=== PATIENT | female | born 1980 | race Caucasian/White ===

== ENCOUNTER 2024-05-20 19:39 | Emergency (ER) | payer OTHER ==
[~2024-05-20] VITALS: Ht 157.5 cm; Wt 79.4 kg
[~2024-05-20 19:39] MED LIST: AZIT500 PO; Acetaminophen650 M1 PO; BREO ELLIPTA 11 EAC1 INH; BUPRENORPHIN-N1 EAC1 SL; BUPRENORPHIN-N1 EAC5 SL; CEFP200 PO; CLON.2 PO; ESZOPICLONE3 MG PO; FLUTICASONE-SA1 EAC9 IH; GLYBURIDE5 M2 PO; IBU800 M1 PO; INSULIN GL100 UNIT/2 SC; LABE100 PO; LAMICTAL200 MG PO; LIDO700A20 TOP; NEURONTIN300 MG PO; OMEP20ER PO; ONDA4ODT MM; PRAZ5 PO; Phenergan25 M1 PO; Prednisone20 MG PO; REGLAN1013 PO; TRAZ100 PO; VISBIOME 112.51 EACH PO
[2024-05-20 19:49] VITALS: BP 117/76
[2024-05-20 20:19] LABS: BASOPHILS ABSOLUTE AUTO 0.03 K/mm3 (0.00-0.23); BASOPHILS PERCENT AUTO 1 % (0-2); EOSINOPHILS ABSOLUTE AUTO 0.03 K/mm3 (0.00-0.68); EOSINOPHILS PERCENT AUTO 1 % (0-6); Hematocrit 38.1 % (33.0-51.0); Hemoglobin 12.1 g/dL (11.5-16.0); IMMATURE GRAN ABSOLUTE AUTO 0.02 K/mm3 (0.00-0.10); IMMATURE GRAN PERCENT AUTO 0 % (0-1); LYMPHOCYTES ABSOLUTE AUTO 1.51 K/mm3 (0.84-5.20); LYMPHOCYTES PERCENT AUTO 25 % (21-46); MONOCYTES ABSOLUTE AUTO 0.36 K/mm3 (0.16-1.47); MONOCYTES PERCENT AUTO 6 % (4-13); Mean Corpuscular HGB 31.8 pg (26.0-34.0); Mean Corpuscular HGB Conc 31.8 g/dL (31.5-36.5); Mean Corpuscular Volume 100 fL (80-100); Mean Platelet Volume 10.9 fL (9.1-12.4); NEUTROPHILS ABSOLUTE AUTO 4.17 K/mm3 (1.96-9.15); NEUTROPHILS PERCENT AUTO 68 % (41-73); Platelet Count 226 K/mm3 (150-400); RDW Coefficient Variation 12.9 % (11.7-14.2); RDW Standard Deviation 47.8 fL (35.1-46.3); Red Blood Cell Count 3.81 M/mm3 (3.80-5.20); White Blood Cell Count 6.12 K/mm3 (4.00-11.30)
[2024-05-20 20:41] LABS: Albumin, Blood 3.3 g/dL (3.4-5.0); Albumin/Globulin Ratio 0.9 (0.8-1.8); Bilirubin, Total 0.2 mg/dL (0.1-1.0); Bun/Creatinine Ratio 14.4 (12.0-20.0); Calcium, Blood 8.8 mg/dL (8.5-10.1); Creatinine, Blood 0.63 mg/dL (0.40-1.00); Globulin, Blood 3.5 g/dL (2.2-4.0); Potassium, Blood 3.8 mmol/L (3.5-5.5); Total Protein, Blood 6.8 g/dL (6.4-8.2)
[2024-05-20] MEDS ORDERED: Albuterol 2.5 MG/3 ML VIAL INH SCH (21:15)
[2024-05-20] MEDS ORDERED: MethylPREDNISolone Sod Succ 125 MG Vial IV ONE (21:15)
[2024-05-20] MEDS ORDERED: Lactated Ringer's 1,000 ML IV ONE (21:20)
[2024-05-20] MEDS ORDERED: CefTRIAXone Sodium 1,000 MG in NS 50 ML IV ONE (21:20)
[2024-05-20] MEDS ORDERED: NS 1,000 ML IV SCH (21:20)
[2024-05-20] MEDS ORDERED: Insulin Glargine-Yfgn 100 Unit/mL 3 ML SYR SC ONE (21:20)
[2024-05-20] MEDS ORDERED: Insulin Regular 100 Unit/ML 1ML Dose SC ONE (21:20)
[2024-05-20] MEDS ORDERED: LORazepam 2 MG/ML 1ML Injection IV ONE (21:40)
[2024-05-20 22:20] LABS: Influenza A, PCR NEGATIVE (NEGATIVE); Influenza B, PCR NEGATIVE (NEGATIVE); Resp Syncytial Virus, PCR NEGATIVE (NEGATIVE); SARS-Cov-2 (COVID-19) PCR, MMC NEGATIVE (NEGATIVE)
[2024-05-20] MEDS ORDERED: METPRE4DP PO (23:08)
[2024-05-20] MEDS ORDERED: AZIT250 PO (23:08)
[2024-05-20] MEDS ORDERED: ALBU2.5V5 NEB (23:08)
[2024-05-20] MEDS ORDERED: Azithromycin 250 MG Tab PO ONE (23:10)
== END 2024-05-20 23:34 | disposition home or self-care (01) ==
LOC: ER 19:39
PROVIDERS: Emergency Medicine; Physician Assistant
DX: J44.1 Chronic obstructive pulmonary disease with (acute) exacerbation (principal); J18.9 Pneumonia, unspecified organism; E11.65 Type 2 diabetes mellitus with hyperglycemia; I10 Essential (primary) hypertension; F17.200 Nicotine dependence, unspecified, uncomplicated; Z88.8 Allergy status to other drugs, medicaments and biological substances; Z88.6 Allergy status to analgesic agent; Z79.51 Long term (current) use of inhaled steroids; Z79.1 Long term (current) use of non-steroidal anti-inflammatories (NSAID); Z79.4 Long term (current) use of insulin; Z79.899 Other long term (current) drug therapy
CPT/HCPCS: 0241U; 36415; 71046; 80053; 82947; 83605; 83880; 84484; 85025; 94644; 94664; J0696; J1815; J2060; J2919; J7030

== ENCOUNTER 2024-05-22 18:10 | Emergency (ER) | payer OTHER ==
[~2024-05-22] VITALS: Ht 157.5 cm; Wt 78.0 kg
[~2024-05-22 18:10] MED LIST changes: +ALBU2.5V5 NEB; +AZIT250 PO; +METPRE4DP PO
[2024-05-22 18:41] LABS: BASOPHILS ABSOLUTE AUTO 0.04 K/mm3 (0.00-0.23); BASOPHILS PERCENT AUTO 1 % (0-2); EOSINOPHILS ABSOLUTE AUTO 0.05 K/mm3 (0.00-0.68); EOSINOPHILS PERCENT AUTO 1 % (0-6); Hematocrit 39.1 % (33.0-51.0); Hemoglobin 12.5 g/dL (11.5-16.0); IMMATURE GRAN ABSOLUTE AUTO 0.06 K/mm3 (0.00-0.10); IMMATURE GRAN PERCENT AUTO 1 % (0-1); LYMPHOCYTES ABSOLUTE AUTO 2.38 K/mm3 (0.84-5.20); LYMPHOCYTES PERCENT AUTO 29 % (21-46); MONOCYTES ABSOLUTE AUTO 0.41 K/mm3 (0.16-1.47); MONOCYTES PERCENT AUTO 5 % (4-13); Mean Corpuscular HGB 31.8 pg (26.0-34.0); Mean Corpuscular Volume 100 fL (80-100); Mean Platelet Volume 10.3 fL (9.1-12.4); NEUTROPHILS ABSOLUTE AUTO 5.35 K/mm3 (1.96-9.15); NEUTROPHILS PERCENT AUTO 65 % (41-73); Platelet Count 257 K/mm3 (150-400); RDW Coefficient Variation 12.7 % (11.7-14.2); RDW Standard Deviation 46.9 fL (35.1-46.3); Red Blood Cell Count 3.93 M/mm3 (3.80-5.20); White Blood Cell Count 8.29 K/mm3 (4.00-11.30)
[2024-05-22 19:04] LABS: Albumin, Blood 3.3 g/dL (3.4-5.0); Albumin/Globulin Ratio 0.9 (0.8-1.8); Bilirubin, Total 0.2 mg/dL (0.1-1.0); Bun/Creatinine Ratio 17.9 (12.0-20.0); Calcium, Blood 8.8 mg/dL (8.5-10.1); Creatinine, Blood 0.67 mg/dL (0.40-1.00); Globulin, Blood 3.7 g/dL (2.2-4.0); Potassium, Blood 3.5 mmol/L (3.5-5.5)
[2024-05-22] MEDS ORDERED: LORazepam 2 MG/ML 1ML Injection IV ONE (19:55)
[2024-05-22 20:14] VITALS: BP 148/89
== END 2024-05-22 20:18 | disposition home or self-care (01) ==
LOC: ER 18:10
PROVIDERS: Emergency Medicine
DX: F41.9 Anxiety disorder, unspecified (principal); T38.0X5A Adverse effect of glucocorticoids and synthetic analogues, initial encounter; J18.9 Pneumonia, unspecified organism; E11.9 Type 2 diabetes mellitus without complications; I10 Essential (primary) hypertension; J44.9 Chronic obstructive pulmonary disease, unspecified; F17.200 Nicotine dependence, unspecified, uncomplicated; Z99.81 Dependence on supplemental oxygen; Z88.8 Allergy status to other drugs, medicaments and biological substances; Z79.899 Other long term (current) drug therapy; Z79.4 Long term (current) use of insulin; Z79.84 Long term (current) use of oral hypoglycemic drugs
CPT/HCPCS: 71046; 80053; 85025; 96374; 99283-25; J2060

== ENCOUNTER 2025-01-01 21:07 | Inpatient (IN) | payer OTHER ==
[~2025-01-01] VITALS: Ht 157.5 cm; Wt 73.8 kg
[~2025-01-01 21:07] MED LIST changes: -BUPRENORPHIN-N1 EAC1 SL; +SUBOXONE 2 MG-1 EAC1 PO
[2025-01-01 22:54] LABS: BASOPHILS ABSOLUTE AUTO 0.04 K/mm3 (0.00-0.23); BASOPHILS PERCENT AUTO 0 % (0-2); EOSINOPHILS PERCENT AUTO 4 % (0-6); Hematocrit 25.3 % (33.0-51.0); Hemoglobin 8.1 g/dL (11.5-16.0); IMMATURE GRAN ABSOLUTE AUTO 0.04 K/mm3 (0.00-0.10); IMMATURE GRAN PERCENT AUTO 0 % (0-1); LYMPHOCYTES ABSOLUTE AUTO 1.26 K/mm3 (0.84-5.20); LYMPHOCYTES PERCENT AUTO 12 % (21-46); MONOCYTES ABSOLUTE AUTO 0.54 K/mm3 (0.16-1.47); MONOCYTES PERCENT AUTO 5 % (4-13); Mean Corpuscular HGB 29.6 pg (26.0-34.0); Mean Corpuscular Volume 92 fL (80-100); NEUTROPHILS ABSOLUTE AUTO 7.88 K/mm3 (1.96-9.15); NEUTROPHILS PERCENT AUTO 78 % (41-73); Platelet Count 404 K/mm3 (150-400); RDW Standard Deviation 54.2 fL (35.1-46.3); Red Blood Cell Count 2.74 M/mm3 (3.80-5.20); White Blood Cell Count 10.16 K/mm3 (4.00-11.30)
[2025-01-01 23:15] LABS: Albumin, Blood 2.1 g/dL (3.4-5.0); Albumin/Globulin Ratio 0.4 (0.8-1.8); Bilirubin, Total 0.1 mg/dL (0.1-1.0); Bun/Creatinine Ratio 19.1 (12.0-20.0); Calcium, Blood 8.9 mg/dL (8.5-10.1); Creatinine, Blood 1.1 mg/dL (0.40-1.00); Potassium, Blood 3.4 mmol/L (3.5-5.5); Total Protein, Blood 8.1 g/dL (6.4-8.2)
[2025-01-01] MEDS ORDERED: FentaNYL Citrate 50 MCG/ML 2 ML Injection IV PRN (23:30)
[2025-01-02] MEDS ORDERED: HYDROmorphone HCl/Pf 1MG SYR IV ONE (00:50)
[2025-01-02] MEDS ORDERED: NS 1,000 ML IV SCH ×2 (03:30→04:45)
[2025-01-02] MEDS ORDERED: CefTRIAXone Sodium 1,000 MG in NS 50 ML IV ONE (03:30)
[2025-01-02] MEDS ORDERED: Piperacillin/Tazobactam Sod 4.5 GM in NS 100 ML IV ONE (03:35)
[2025-01-02] MEDS ORDERED: Acetaminophen 325 MG TABLET PO PRN (04:40)
[2025-01-02] MEDS ORDERED: Morphine Sulfate 4 MG/1 ML Injection IV PRN (04:40)
[2025-01-02] MEDS ORDERED: Vancomycin HCL 1,750 MG in NS 500 ML IV ONE (04:45)
[2025-01-02] MEDS ORDERED: Diazepam 5 MG / ML 2ML SYR IV ONE (05:40)
[2025-01-02] MEDS ORDERED: Insulin Glargine-Yfgn 100 Unit/mL 3 ML SYR SC SCH (06:00)
[2025-01-02] MEDS ORDERED: Cefepime HCl 1,000 MG in NS 100 ML IV SCH (06:00)
[2025-01-02] MEDS ORDERED: Potassium Chloride 40 MEQ in NS 250 ML IV ONE (06:14)
[2025-01-02] MEDS ORDERED: Albumin (Human) 25gm/100ml 100 ML IV ONE (06:15)
[2025-01-02] MEDS ORDERED: Insulin Human Lispro 100 Units/ML 3ML Syringe SC SCH ×2 (07:30)
[2025-01-02 08:58] VITALS: BP 115/75
[2025-01-02] MEDS ORDERED: Heparin Sodium,Porcine 5,000 UNIT/0.5 ML SDV SC SCH (09:00)
[2025-01-02] MEDS ORDERED: Lactobacil 2-S.Thermo-Bifido 1 1 Cap PO SCH (09:00)
--- NOTE | 2025-01-02 09:00 | NUR ---
ARRIVAL TO PCU 18 PT ARRIVED TO PCU 18 AT APPROXIMATELY 0830. PT SLID OVER FROM ER GURNEY TO HOSPITAL BED BY 4 CLINICAL STAFF MEMBERS. PT A&Ox4, COMMUNICATES NEEDS APPROPRIATELY, ORIENTED TO CALL LIGHT/UNIT. BP STABLE, SINUS 80's, DENIES CP/PRESSURE. SpO2> 92% ON BASELINE 2L VIA NC, DENIES SOB. REPORT GIVEN THAT DRESSINGS WERE CHANGED AT 0700, DRESSINGS ARE C/D/I AT THIS TIME. MANAGING PTs PAIN PER EMAR. AT BEDSIDE. CALL LIGHT IN REACH, BED IN LOWEST POSITION.
[2025-01-02] MEDS ORDERED: Heparin Sodium 5000 Units/ML 1ML MDV SC SCH (09:17)
[2025-01-02 09:57] LABS: BASOPHILS ABSOLUTE AUTO 0.04 K/mm3 (0.00-0.23); BASOPHILS PERCENT AUTO 0 % (0-2); EOSINOPHILS ABSOLUTE AUTO 0.27 K/mm3 (0.00-0.68); EOSINOPHILS PERCENT AUTO 3 % (0-6); Hematocrit 26.4 % (33.0-51.0); Hemoglobin 8.3 g/dL (11.5-16.0); IMMATURE GRAN ABSOLUTE AUTO 0.06 K/mm3 (0.00-0.10); IMMATURE GRAN PERCENT AUTO 1 % (0-1); LYMPHOCYTES ABSOLUTE AUTO 0.89 K/mm3 (0.84-5.20); LYMPHOCYTES PERCENT AUTO 10 % (21-46); MONOCYTES ABSOLUTE AUTO 0.58 K/mm3 (0.16-1.47); MONOCYTES PERCENT AUTO 6 % (4-13); Mean Corpuscular HGB 30.1 pg (26.0-34.0); Mean Corpuscular HGB Conc 31.4 g/dL (31.5-36.5); Mean Corpuscular Volume 96 fL (80-100); NEUTROPHILS ABSOLUTE AUTO 7.36 K/mm3 (1.96-9.15); NEUTROPHILS PERCENT AUTO 80 % (41-73); Platelet Count 379 K/mm3 (150-400); RDW Coefficient Variation 16.2 % (11.7-14.2); RDW Standard Deviation 56.6 fL (35.1-46.3); Red Blood Cell Count 2.76 M/mm3 (3.80-5.20)
[2025-01-02] MEDS ORDERED: HYDMOR4 PO (10:00)
[2025-01-02] MEDS ORDERED: HUMALOG KW100 UNIT/1 SC (10:04)
[2025-01-02] MEDS ORDERED: Hair, Skin & N1 EACH PO (10:05)
[2025-01-02] MEDS ORDERED: NALOXONE H0.4 MG/1 M IM (10:06)
[2025-01-02] MEDS ORDERED: MIRALAX17 GM PO (10:08)
[2025-01-02] MEDS ORDERED: Seroquel Xr50 MG PO (10:09)
[2025-01-02] MEDS ORDERED: SYMBICORT 80-10.2 GM IH (10:10)
[2025-01-02] MEDS ORDERED: SUBOXONE 2 MG-1 EAC1 SL (10:13)
[2025-01-02] MEDS ORDERED: Cyclobenzaprine5 MG PO (10:15)
[2025-01-02] MEDS ORDERED: B-121000 MC3 PO (10:15)
[2025-01-02] MEDS ORDERED: SERT100 PO (10:18)
[2025-01-02 10:19] LABS: Albumin, Blood 2.5 g/dL (3.4-5.0); Albumin/Globulin Ratio 0.5 (0.8-1.8); Bilirubin, Total 0.3 mg/dL (0.1-1.0); Bun/Creatinine Ratio 15.6 (12.0-20.0); Calcium, Blood 8.7 mg/dL (8.5-10.1); Creatinine, Blood 0.96 mg/dL (0.40-1.00); Globulin, Blood 5.5 g/dL (2.2-4.0); Potassium, Blood 3.7 mmol/L (3.5-5.5)
[2025-01-02] MEDS ORDERED: IBU800 MG PO (10:22)
[2025-01-02] MEDS ORDERED: ZOLP10 PO (10:22)
[2025-01-02] MEDS ORDERED: Albuterol 2.5 MG/3 ML VIAL INH PRN (10:40)
[2025-01-02] MEDS ORDERED: Cyclobenzaprine HCl 10 MG Tab PO PRN (10:45)
[2025-01-02] MEDS ORDERED: Promethazine HCl 25 MG Tab PO PRN (10:45)
[2025-01-02] MEDS ORDERED: Naloxone HCl 0.4MG / ML 1ML Vial IM PRN (10:50)
[2025-01-02] MEDS ORDERED: HYDROmorphone HCl 4 MG Tab PO PRN (10:50)
[2025-01-02] MEDS ORDERED: Polyethylene Glycol 3350 17 gm PO SCH (11:00)
[2025-01-02] MEDS ORDERED: Ondansetron 4 MG SoluTab MM PRN (11:10)
[2025-01-02] MEDS ORDERED: Mometasone/Formoterol MDI 100/5 mcg 13 GM INH SCH (11:10)
[2025-01-02] MEDS ORDERED: Buprenorphine HCL/Naloxone HCL 2-0.5MG 1 EA SL SCH ×2 (11:30→21:00)
[2025-01-02 11:45] VITALS: BP 102/69
[2025-01-02] MEDS ORDERED: ALPRAZolam 0.25 MG Tab PO PRN (12:00)
[2025-01-02] MEDS ORDERED: Gabapentin 300 MG Cap PO SCH (14:00)
[2025-01-02 16:06] VITALS: BP 104/71
[2025-01-02] MEDS ORDERED: Omeprazole 20 MG CapCR PO SCH (16:30)
[2025-01-02] MEDS ORDERED: Vancomycin HCL 1,000 MG in NS 250 ML IV SCH (17:00)
--- NOTE | 2025-01-02 17:37 | NUR ---
SHIFT SUMMARY SEE PREVIOUS NOTE. PT A&Ox4, CALLS AND COMMUNICATES NEEDS APPROPRIATELY. BP STABLE, SINUS 80's, DENIES CP/PRESSURE. SpO2> 92% ON BASELINE 2L VIA NC, DENIES SOB. WOUND CARE AND DRESSING CHANGE PROVIDED. MIDLINE DRESSING C/D/I, PT REFUSED REMOVAL OF DRESSING FOR ASSESSMENT D/T IT BEING CHANGED AT START OF SHIFT AND IS STILL C/D/I. MANAGED PTs PAIN PER EMAR. PT REMAINED BEDREST, Q2 TURNS PROVIDED AND PT MOVES AROUND IN BED IND. AT BEDSIDE ASSISTING WITH CARE AND HELPING PT USE FEMALE URINAL. OSTOMY INTACT WITH SEMI FORMED BROWN STOOL OUTPUT. NO OTHER EVENTS, WILL REPORT TO ONCOMING RN.
[2025-01-02 20:43] VITALS: BP 103/68
[2025-01-02] MEDS ORDERED: LamoTRIgine 100 MG Tab PO SCH (21:00)
[2025-01-02] MEDS ORDERED: QUEtiapine Fumarate 50 MG TAB PO SCH (21:00)
[2025-01-02] MEDS ORDERED: Zolpidem Tartrate 10 MG Tab PO SCH (21:00)
[2025-01-02 23:31] VITALS: BP 98/69
[2025-01-03 03:49] VITALS: BP 98/62
--- NOTE | 2025-01-03 05:51 | NUR ---
SHIFT SUMMARY PATIENT SOMULENT BUT WAKES TO VERBAL STIMULI. ALERT AND ORIENTED x4. SOFT SPOKEN BUT ABLE TO MAKE NEEDS KNOWN. BP OCCASIONALLY SOFT. ON BASELINE 2L NC WITH SPO2 LOW TO MID 90s, WILL DESAT AT TIMES WHILE SLEEPING. TELE READING SR 70-80s. WOUND CARE COMPLETED AROUND 0400, AT BEDSIDE ASSISTING THIS RN. ASSISTING PATIENT DURING THE NIGHT WITH TURNS AND VOIDING. OSTOMY IN PLACE. NO OTHER CHANGES, WILL REPORT TO DAY SHIFT RN.
[2025-01-03 08:53] VITALS: BP 103/73
[2025-01-03] MEDS ORDERED: Sertraline HCl 100 MG Tab PO SCH (09:00)
[2025-01-03] MEDS ORDERED: Cyanocobalamin 500 MCG Tab PO SCH (09:00)
[2025-01-03] MEDS ORDERED: Multivitamins/Minerals TAB PO SCH (09:00)
[2025-01-03 09:39] LABS: Percent Saturation 21.4 % (15.0-50.0)
--- NOTE | 2025-01-03 10:03 | NUR ---
AM NOTE ASSUMED CARE OF PATIENT AT APPROX 0700. PT ALERT, ORIENTED X4; ANXIOUS AT TIMES BUT COOPERATIVE WITH CARE. PT UP WITH 1 PERSON ASSIST. PT REPORTS PAIN TO WOUNDS, MEDICATED PER EMAR. PT DENIES CHEST PAIN/PRESSURE, SOB, NAUSEA, DIZZINESS AND NUMB/TINGLING. TELE SINUS, BP STABLE. ABD SOFT, TENDER ON PALP, +BT, OSTOMY NOTED WNL. SPO2 >90% ON 3L O2 VIA NC, LS CLEAR, DIM BASES. EDEMA NOTED TO 1+ RLE, TRACE TO LLE. EXTENSIVE WOUND TO HIP/COCCYX, PLANS FOR DRESSING CHANGE THIS AFTERNOON. OTHER VSS. NO OTHER ACUTE CHANGES NOTED. WILL CONTINUE TO MONITOR.
[2025-01-03 11:56] VITALS: BP 108/74
--- NOTE | 2025-01-03 13:48 | NUR ---
RECIEVED REPORT FROM SOBIA
--- NOTE | 2025-01-03 14:42 | NUR ---
Transfer note No acute changes t/o shift. Orders for Medical no tele. Discussed pain manangement with patient, she stated she was wanting an increase, discussed with Dr Sewell new order place, patient updated on plan of care. Pt spouse to assist with wound dressing change this afternoon. Report given to Rn assuming care of patient, pt transfered at approx 1440.
[2025-01-03] MEDS ORDERED: NS 250 ML IV PRN (14:45)
--- NOTE | 2025-01-03 14:53 | NUR ---
TRANSFER 1430 PT ARRIVED VIA BED. AOX4, COOPERATIVE, ABLE TO MAKE NEEDS KNOWNL SKIN CHECK PERFORMED BY THIS RN AND VINCE RN, PICTURES IN CHART. FAMILY IS BEDSIDE. LUNGS SOUNDS CRACKLE ALL LOBES.
--- NOTE | 2025-01-03 15:54 | NUR ---
NEW PATIENT ADMIT, PCU TRANSFER EXTENSIVE WOUNCARE NEEDED, OSTOMY, AC-HS, CELULITIS, FULL CODE, PLEASANT, WHT AND TIME DOCUMENTED, SKIN CHECK, REPOSITION, OSTOMY FULL STERILIZATION AND REPLACE, STOCKED A WOUNDCARE TUB FOR ROOM W NEEDED SUPPLIES, HERE, NEEDS EDUCATION OR HOMECARE ASSIST FOR OSTOMY CARE. CALL LIGHT, FRESH WATER AND TOILOTRIES SUPPLIED AND IN REACH.
[2025-01-03] MEDS ORDERED: Buprenorphine HCL/Naloxone HCL 2-0.5MG 1 EA SL SCH (16:00)
[2025-01-03] MEDS ORDERED: CeFAZolin Sodium 2,000 MG in NS 100 ML IV SCH (16:00)
--- NOTE | 2025-01-03 16:33 | NUR ---
CALLED DOWN TO PCU TO CLARIFY UPDATED WOUND CARE ORDERS. THEY ARE TO CALL BACK.
--- NOTE | 2025-01-03 16:56 | NUR ---
SHIFT SUMMARY PT AOX4, COOPERATIVE, ABLE TO MAKE NEEDS KNOWN. PT HAS REMAINED IN BED SINCE TRANSFER TO [facility] FLO[facility]. COLOSTOMY BAG WAS CHANGED. IV INTACT. ON 3L O2 CURRENTLY. IS BEDSIDE. BED IN LOWEST POSITION, CALL LIGHT WITHIN REACH.
[2025-01-03 17:08] VITALS: BP 95/70
[2025-01-03 20:16] VITALS: BP 99/74
--- NOTE | 2025-01-04 05:44 | NUR ---
SHIFT SUMMARY PT A&Ox4 AND PLEASANT. DRESSINGS ON BUTTOCKS, RIGHT LEG, AND ABD CHANGED AT START OF SHIFT, WITH 's HELP. PT TOLERATED WELL AND REPORTS PAIN IS IMPROVING. DECLINED OFFER OF PAIN MEDS BEFORE DRESSING CHANGE. IV ABX GIVEN PER EMAR. PT REMAINS ON 2L OF OXYGEN. VSS BUT BP IS SOFT. PT ABLE TO SLEEP MOST OF THE NIGHT. AT BEDSIDE. BED INLOWEST POSITION AND CALL LIGHT IN REACH.
[2025-01-04 05:51] VITALS: BP 101/69
[2025-01-04 06:07] LABS: BASOPHILS ABSOLUTE AUTO 0.03 K/mm3 (0.00-0.23); BASOPHILS PERCENT AUTO 0 % (0-2); EOSINOPHILS ABSOLUTE AUTO 0.37 K/mm3 (0.00-0.68); EOSINOPHILS PERCENT AUTO 5 % (0-6); Hematocrit 21.6 % (33.0-51.0); Hemoglobin 6.8 g/dL (11.5-16.0); IMMATURE GRAN ABSOLUTE AUTO 0.06 K/mm3 (0.00-0.10); IMMATURE GRAN PERCENT AUTO 1 % (0-1); LYMPHOCYTES PERCENT AUTO 14 % (21-46); MONOCYTES ABSOLUTE AUTO 0.61 K/mm3 (0.16-1.47); MONOCYTES PERCENT AUTO 8 % (4-13); Mean Corpuscular HGB 29.7 pg (26.0-34.0); Mean Corpuscular HGB Conc 31.5 g/dL (31.5-36.5); Mean Corpuscular Volume 94 fL (80-100); Mean Platelet Volume 9.1 fL (9.1-12.4); NEUTROPHILS ABSOLUTE AUTO 5.22 K/mm3 (1.96-9.15); NEUTROPHILS PERCENT AUTO 72 % (41-73); Platelet Count 345 K/mm3 (150-400); RDW Coefficient Variation 16.3 % (11.7-14.2); RDW Standard Deviation 56.7 fL (35.1-46.3); Red Blood Cell Count 2.29 M/mm3 (3.80-5.20); White Blood Cell Count 7.29 K/mm3 (4.00-11.30)
[2025-01-04 06:41] LABS: Bun/Creatinine Ratio 10.9 (12.0-20.0); Calcium, Blood 8.8 mg/dL (8.5-10.1); Creatinine, Blood 1.01 mg/dL (0.40-1.00); Potassium, Blood 3.1 mmol/L (3.5-5.5)
[2025-01-04 07:15] VITALS: BP 115/79
[2025-01-04 09:15] LABS: Hematocrit 26.6 % (33.0-51.0); Hemoglobin 8.6 g/dL (11.5-16.0); IMMATURE RETIC FRACTION 30.9 % (2.3-16.0); RETIC HGB EQUIVALENT 30.1 pg (28.20-36.60); RETICULOCYTE ABSOLUTE 0.0801 M/mm3 (0.0200-0.1100); RETICULOCYTE COUNT PERCENT 2.84 % (0.50-2.50)
[2025-01-04 09:34] LABS: Percent Saturation 22.6 % (15.0-50.0)
[2025-01-04 12:51] LABS: Hematocrit 22.7 % (33.0-51.0); Hemoglobin 7.1 g/dL (11.5-16.0)
[2025-01-04] MEDS ORDERED: Potassium Chloride 20 MEQ TabCR PO ONE (16:00)
--- NOTE | 2025-01-04 18:19 | NUR ---
SHIFT SUMMARY MS ONEILL IS OX4. HGB ON AM LABS WAS 6.8, [address] IBANEZ BUT CANCELLED BY SAME WHEN RECHECK WAS 8.6. RECHECK AT NOON DOWN TO 7.1. DRESSING CHANGE DONE TO BUTTOCK WOUND, HIP WOUND, BACK OF THIGH AND ABDOMEN, SOME YELLOW DRAINAGE, VERY MINIMAL BLOOD ON THE OLD DRESSING. HER CHARLES DOES WOUND CARE AT HOME AND CLEANSED AND CHANGED THE WOUND TODAY WITH GOOD TECHNIQUE. BLE EDEMA, PINK, WARM TO TOUCH. PAIN CONTROLLED ON SCHEDULED SUBOXONE AND PRN TYLENOL, TOLERABLE TO PT. PT STANDING AND REPOSITIONING WITH WALKER, STEADY STANDING. ON 2L OXYGEN N/C (BASELINE), CONTINUOUS PULSE OX IN THE HIGH 90S. HER HAS BEEN VERY SUPPORTIVE, IN THE ROOM FOR MOST OF THE SHIFT. BED LOWM CALL LIGHT IN REACH AND USED APPROPPRIATELY.
[2025-01-04 19:56] VITALS: BP 96/70
[2025-01-04] MEDS ORDERED: Arginine/Glutamine/Calcium Hmb 1 Packet PO SCH (21:00)
[2025-01-05 05:20] VITALS: BP 90/57
[2025-01-05 06:15] LABS: BASOPHILS ABSOLUTE AUTO 0.04 K/mm3 (0.00-0.23); BASOPHILS PERCENT AUTO 1 % (0-2); EOSINOPHILS ABSOLUTE AUTO 0.43 K/mm3 (0.00-0.68); EOSINOPHILS PERCENT AUTO 5 % (0-6); Hematocrit 23.2 % (33.0-51.0); Hemoglobin 7.1 g/dL (11.5-16.0); IMMATURE GRAN ABSOLUTE AUTO 0.09 K/mm3 (0.00-0.10); IMMATURE GRAN PERCENT AUTO 1 % (0-1); LYMPHOCYTES ABSOLUTE AUTO 1.29 K/mm3 (0.84-5.20); LYMPHOCYTES PERCENT AUTO 16 % (21-46); MONOCYTES ABSOLUTE AUTO 0.62 K/mm3 (0.16-1.47); MONOCYTES PERCENT AUTO 8 % (4-13); Mean Corpuscular HGB 29.6 pg (26.0-34.0); Mean Corpuscular HGB Conc 30.6 g/dL (31.5-36.5); Mean Corpuscular Volume 97 fL (80-100); Mean Platelet Volume 9.2 fL (9.1-12.4); NEUTROPHILS PERCENT AUTO 69 % (41-73); Platelet Count 391 K/mm3 (150-400); RDW Coefficient Variation 16.4 % (11.7-14.2); RDW Standard Deviation 58.4 fL (35.1-46.3); White Blood Cell Count 7.97 K/mm3 (4.00-11.30)
--- NOTE | 2025-01-05 06:20 | NUR ---
SHIFT SUMMARY PT A&Ox4 AND PLEASANT. NO C/O PAIN. IV ABX GIVEN PER EMAR. PT REMAINS ON BASELINE 2L OF OXYGEN. DRESSING REAMIN C/D/I. OSTOMY BAG PRODUCING SOFT, BROWN STOOL. VSS BUT BP REMAINS SOFT. BED IN LOWEST POSITION AND CALL LIGHT IN REACH.
[2025-01-05 06:41] LABS: Albumin, Blood 1.9 g/dL (3.4-5.0); Albumin/Globulin Ratio 0.4 (0.8-1.8); Bilirubin, Total 0.2 mg/dL (0.1-1.0); Bun/Creatinine Ratio 12.9 (12.0-20.0); Creatinine, Blood 1.01 mg/dL (0.40-1.00); Potassium, Blood 3.5 mmol/L (3.5-5.5); Total Protein, Blood 6.9 g/dL (6.4-8.2)
[2025-01-05 07:42] VITALS: BP 93/55
[2025-01-05] MEDS ORDERED: ALPR.5 PO (13:08)
[2025-01-05] MEDS ORDERED: CEPH500 PO (13:09)
--- NOTE | 2025-01-05 13:50 | NUR ---
DISCHARGE NOTE MS ONEILL IS OX4, CHARLES AT BEDSIDE THROUGHOUT THE SHIFT. HE DID DRESSING CHANGE WITH GOOD TECHNIQUE. IT LOOKED VERY SIMILAR TO YESTERDAY WITH SIMILAR EXUDATE. +OUTPUT FROM OSTOMY. STANDING TO VOID AT BEDSIDE USING EMALE URINAL. STEADY STANDING USING WALKER. MS ONEILL VERBALISED UNDERSTANDING OF WRITTEN AND VERBAL DISCHARGE INSTRUCTIONS. SHE AND HER HAVE NO NEW QUESTIONS OR CONCERNS PRIOR TO DISCHARGE. DISCHARGE INSULIN ORDER CLARIFIED WITH DR IBANEZ VIA TELEPHONE AND HE SAID THERE ARE NO CHANGES TO INSULIN SHE WAS ON PRIOR TO ADMISSION, THIS WAS RELAYED TO PT. PIV X 2 REMOVED INTACT. PREPARING FOR DISCHARGE.
--- NOTE | 2025-01-05 14:06 | NUR ---
RN NOTE DISCHARGED WITH HER IN WHEELCHAIR AT 1407HRS. NO NEW QUESTIONS OR CONCERNS VOICED.
[2025-01-05 15:56] LABS: Performing Lab BLOODWORKS NW
== END 2025-01-05 14:08 | disposition home or self-care (01) | DRG 920 ==
LOC: ER 21:07 → PCU 01-02 04:31 → MEDS 01-03 14:26
PROVIDERS: Internal Medicine; Student in an Organized Health Care Education/Training Program; ADMIT Internal Medicine
PROC: 30233J1 Transfusion of Nonautologous Serum Albumin into Peripheral Vein, Percutaneous Approach (ICD-10-PCS; principal; 2025-01-02)
DX: T86.822 Skin graft (allograft) (autograft) infection (principal); E87.1 Hypo-osmolality and hyponatremia; L03.115 Cellulitis of right lower limb; T81.31XA Disruption of external operation (surgical) wound, not elsewhere classified, initial encounter; Z66 Do not resuscitate; I10 Essential (primary) hypertension; E11.65 Type 2 diabetes mellitus with hyperglycemia; E88.09 Other disorders of plasma-protein metabolism, not elsewhere classified; E87.6 Hypokalemia; F32.A Depression, unspecified; F41.9 Anxiety disorder, unspecified; G47.00 Insomnia, unspecified; E11.42 Type 2 diabetes mellitus with diabetic polyneuropathy; K21.9 Gastro-esophageal reflux disease without esophagitis; F11.10 Opioid abuse, uncomplicated; G89.4 Chronic pain syndrome; D63.8 Anemia in other chronic diseases classified elsewhere; J44.9 Chronic obstructive pulmonary disease, unspecified; Z79.4 Long term (current) use of insulin; Z93.3 Colostomy status; Z79.899 Other long term (current) drug therapy; Z79.84 Long term (current) use of oral hypoglycemic drugs; Z88.8 Allergy status to other drugs, medicaments and biological substances; Z87.891 Personal history of nicotine dependence
CPT/HCPCS: 36415; 73701; 80048; 80053; 82565; 82728; 82947; 83540; 83550; 83605; 85014; 85018; 85025; 85045; 86850; 86870; 86880; 86900; 86901; 87040; 93005; 93010; 94762; 96374-59; 96375; 99284-25; A9270; J0572; J0690; J0692; J1171; J1644; J1815; J2270; J2543; J3010; J3360; J3370; J3480; J7030; J7040; J7050; P9047; Q9967

== ENCOUNTER 2025-01-21 18:03 | Emergency (ER) | payer OTHER ==
[~2025-01-21] VITALS: Ht 157.5 cm; Wt 68.5 kg
[~2025-01-21 18:03] MED LIST changes: +ALPR.5 PO; +B-121000 MC3 PO; +CEPH500 PO; +Cyclobenzaprine5 MG PO; +HUMALOG KW100 UNIT/1 SC; +HYDMOR4 PO; +Hair, Skin & N1 EACH PO; +IBU800 MG PO; +MIRALAX17 GM PO; +NALOXONE H0.4 MG/1 M IM; +SERT100 PO; +SUBOXONE 2 MG-1 EAC1 SL; +SYMBICORT 80-10.2 GM IH; +Seroquel Xr50 MG PO; +ZOLP10 PO
[2025-01-21 18:10] VITALS: BP 125/77
[2025-01-21] MEDS ORDERED: Robaxin750 MG PO (20:18)
== END 2025-01-21 20:20 | disposition home or self-care (01) ==
LOC: ER 18:03
DX: S76.112A Strain of left quadriceps muscle, fascia and tendon, initial encounter (principal); S31.829A Unspecified open wound of left buttock, initial encounter; I10 Essential (primary) hypertension; E11.9 Type 2 diabetes mellitus without complications; J44.9 Chronic obstructive pulmonary disease, unspecified; Z79.1 Long term (current) use of non-steroidal anti-inflammatories (NSAID); Z79.84 Long term (current) use of oral hypoglycemic drugs; Z79.899 Other long term (current) drug therapy
CPT/HCPCS: 73502; 99283-25